=== PATIENT | male | born 1950 | race Caucasian/White ===

== ENCOUNTER 2018-06-18 18:46 | Emergency (ER) | payer MEDICARE, OTHER ==
[2018-06-18 19:31] VITALS: RESP 18
[2018-06-18 20:24] LABS: Basophils % (A) 0 %; Eosinophils % (A) 0 %; HCT 46.7 % (39.0-53.0); Lymphocytes # (A) 1.3 k/uL (1.0-4.8); Lymphocytes % (A) 12 %; MCH 30.4 pg (25.0-35.0); MCHC 32.2 g/dL (31.0-37.0); MCV 94.4 fL (80.0-100.0); Mean Platelet Volume 6.7; Monocytes # (A) 0.3 k/uL (0-1.0); Monocytes % (A) 3 %; Neutrophils # (A) 9.6 k/uL (1.3-7.7); Neutrophils % (A) 84 %; Platelet Count 239 k/uL (150-450); RBC 4.95 m/uL (4.30-5.90); WBC 11.4 k/uL (3.8-10.6)
[2018-06-18 20:32] LABS: Albumin 4.6 g/dL (3.5-5.0); Calcium 9.6 mg/dL (8.4-10.2); Potassium 4.6 mmol/L (3.5-5.1); Total Bilirubin 0.7 mg/dL (0.2-1.3); Total Protein 7.5 g/dL (6.3-8.2)
--- NOTE | 2018-06-18 21:50 | XR ---
EXAMINATION TYPE: XR KUB DATE OF EXAM: 06/18/2018 COMPARISON: NONE HISTORY: Flank pain TECHNIQUE: 2 views upright FINDINGS: There is no sign of intestinal obstruction or pneumoperitoneum. Fecal pattern is normal. Th ere is a 4 mm calcification over the periphery of the left kidney. There is possible 3 mm calculus in the lower pole right kidney. There is no evidence of a mass. Lung bases are clear. IMPRESSION: Nonacute abdomen. Possible renal calculi.
[2018-06-18] MEDS ORDERED: HYDROmorphone 1 MG/ML 1 ML SYRINGE IVP STA (22:44)
[2018-06-18] MEDS ORDERED: ONDANSETRON 4 MG/2 ML VIAL IVP STA (22:44)
--- NOTE | 2018-06-18 22:46 | ED ---
General Adult HPI - General Chief complaint: Abdominal Pain Stated complaint: abd pain Time Seen by Provider: 06/18/18 22:31 Source: patient, family, RN notes reviewed Mode of arrival: ambulatory Limitations: no limitations - History of Present Illness Initial comments: Patient is a pleasant 67-year-old male presenting to the emergency Department with abdominal discomfort. Onset of symptoms was around 5 hours ago. Discomfort was somewhat abrupt. Patient has had continued discomfort since that time. Patient questioned if he could've been constipated and tried an enema without improvement of symptoms. No diarrhea. No dysuria or hematuria. Patient has had nausea and did vomit once. Patient does have a history of kidney stone one time previously however is unclear symptoms are similar. Discomfort is mostly in the lower mid abdomen. No fevers. - Related Data Home Medications Medication Instructions Recorded Confirmed Atorvastatin [Lipitor] 20 mg PO DAILY@199906/18/18 06/18/18 Previous Rx's Medication Instructions Recorded Ketorolac [Toradol] 10 mg PO Q6HR PRN #15 tab 06/19/18 Metoclopramide HCl [Reglan] 10 mg PO Q6HR PRN #15 tablet 06/19/18 Tamsulosin [Flomax] 0.4 mg PO DAILY #14 cap 06/19/18 Allergies Allergy/AdvReac Type Severity Reaction Status Date / Time No Known Allergies Allergy Verified 06/18/18 21:47 Review of Systems ROS Statement: Those systems with pertinent positive or pertinent negative responses have been documented in the HPI. ROS Other: All systems not noted in ROS Statement are negative. Constitutional: Denies: fever Eyes: Denies: eye pain ENT: Denies: ear pain Respiratory: Denies: cough Cardiovascular: Denies: chest pain Endocrine: Denies: fatigue Gastrointestinal: Reports: abdominal pain, nausea, vomiting Genitourinary: Denies: dysuria Musculoskeletal: Denies: arthralgia Skin: Denies: rash Neurological: Denies: weakness Past Medical History Past Medical History: Hyperlipidemia Additional Past Medical History / Comment(s): kidney stones History of Any Multi-Drug Resistant Organisms: None Reported Past Surgical History: Coronary Bypass/CABG Past Psychological History: No Psychological Hx Reported Smoking Status: Never smoker Past Alcohol Use History: Occasional Past Drug Use History: None Reported General Exam Limitations: no limitations General appearance: alert, in no apparent distress Head exam: Present: atraumatic Eye exam: Present: normal appearance, PERRL ENT exam: Present: normal oropharynx Neck exam: Present: normal inspection Respiratory exam: Present: normal lung sounds bilaterally Cardiovascular Exam: Present: regular rate, normal rhythm Expanded Peripheral pulses: 2+: Dorsalis Pedis (R), Dorsalis Pedis (L) GI/Abdominal exam: Present: soft, tenderness (Moderate tenderness of the lower abdomen), guarding, normal bowel sounds. Absent: distended, rebound, rigid, pulsatile mass Extremities exam: Present: normal inspection Back exam: Present: normal inspection. Absent: CVA tenderness (R), CVA tenderness (L) Neurological exam: Present: alert Psychiatric exam: Present: normal affect, normal mood Skin exam: Present: normal color Course Vital Signs 06/18/18 06/18/18 06/18/18 19:29 23:00 23:58 Temperature 97.2 F L 99.1 F Pulse Rate 60 63 87 Respiratory 18 18 18 Rate Blood Pressure 147/69 142/69 149/70 O2 Sat by Pulse 99 98 95 Oximetry Medical Decision Making - Medical Decision Making Patient reevaluated. Patient is feeling better however still having some discomfort. Patient is receptive to Toradol. Patient and are updated on results. - Lab Data Result diagrams: 06/18/18 20:09 06/18/18 20:09 Lab Results 06/18/18 06/18/18 Range/Units 20:09 20:09 WBC 11.4 H (3.8-10.6) k/uL RBC 4.95 (4.30-5.90) m/uL Hgb 15.0 (13.0-17.5) gm/dL Hct 46.7 (39.0-53.0) % MCV 94.4 (80.0-100.0) fL MCH 30.4 (25.0-35.0) pg MCHC 32.2 (31.0-37.0) g/dL RDW 13.0 (11.5-15.5) % Plt Count 239 (150-450) k/uL Neutrophils % 84 % Lymphocytes % 12 % Monocytes % 3 % Eosinophils % 0 % Basophils % 0 % Neutrophils # 9.6 H (1.3-7.7) k/uL Lymphocytes # 1.3 (1.0-4.8) k/uL Monocytes # 0.3 (0-1.0) k/uL Eosinophils # 0.0 (0-0.7) k/uL Basophils # 0.0 (0-0.2) k/uL Sodium 141 (137-145) mmol/L Potassium 4.6 (3.5-5.1) mmol/L Chloride 106 (98-107) mmol/L Carbon Dioxide 23 (22-30) mmol/L Anion Gap 12 mmol/L BUN 19 (9-20) mg/dL Creatinine 1.20 (0.66-1.25) mg/dL Est GFR (CKD-EPI)AfAm 72 (>60 ml/min/1.73 sqM) Est GFR (CKD-EPI)NonAf 62 (>60 ml/min/1.73 sqM) Glucose 119 H (74-99) mg/dL Calcium 9.6 (8.4-10.2) mg/dL Total Bilirubin 0.7 (0.2-1.3) mg/dL AST 29 (17-59) U/L ALT 41 (21-72) U/L Alkaline Phosphatase 63 (38-126) U/L Total Protein 7.5 (6.3-8.2) g/dL Albumin 4.6 (3.5-5.0) g/dL Amylase 72 (30-110) U/L Lipase 105 (23-300) U/L - Radiology Data Radiology results: report reviewed (Computed tomography scan abdomen and pelvis does have a small obstructing calculi distal left ureter, 3 mm.) Disposition Clinical Impression: Ureterolithiasis Disposition: HOME SELF-CARE Condition: Stable Instructions: Kidney Stones (ED) Additional Instructions: Please follow-up with primary care physician in the next day or 2 for recheck. Also follow-up with urology. Return for fevers, increased pain, vomiting, worsening symptoms or other concerns. Prescriptions: Ketorolac [Toradol] 10 mg PO Q6HR PRN #15 tab PRN Reason: Pain Metoclopramide HCl [Reglan] 10 mg PO Q6HR PRN #15 tablet PRN Reason: Nausea Tamsulosin [Flomax] 0.4 mg PO DAILY #14 cap Is patient prescribed a controlled substance at d/c from ED?: No Referrals: Toy Freeman DO [Primary Care Provider] - 1-2 days Time of Disposition: 00:41
--- NOTE | 2018-06-18 23:44 | CT ---
EXAMINATION TYPE: CT abdomen pelvis w con DATE OF EXAM: 06/18/2018 COMPARISON: None HISTORY: No prior, left flank pain with nausea and vomiting CT DLP: 574.70 mGycm Automated exposure control for dose reduction was used. TECHNIQUE: Helical acquisition of images was performed from the lung bases through the pelvis. CONTRAST: Performed without Oral Contrast and with IV Contrast, patient injected with 100 mL of Isovue 300. FINDINGS: There is some linear density at the posterior lung bases. There is no pericardial effusion. There is no pleural effusion. There is small hiatal hernia. Liver spleen pancreas gallbladder appear normal. Bile ducts are not dil ated. There is no adrenal mass. Kidneys show satisfactory contrast opacification. There is poor excretion o f contrast on the left side on the delayed images. There is a 4 mm calculus in the lateral left kidne y. There is no retroperitoneal adenopathy. Abdominal aorta is atheromatous. There is some stranding a round the left ureter. There is a 3 mm calculus in the distal left ureter. There is minimal left-side d hydronephrosis and hydroureter. Bladder distends smoothly. There is no pelvic mass. Appendix is not seen. There is no sign of appendicitis. I see no intestinal wall thickening. There are no dilated lo ops. There is no retroperitoneal adenopathy. There is L5 spondylolysis with minimal first-degree L5-S 1 spondylolisthesis. IMPRESSION: SMALL OBSTRUCTING CALCULUS IN THE DISTAL LEFT URETER. LEFT RENAL CALCULUS. FIRST-DEGREE L5-S1 SPONDYLOLISTHESIS.
[2018-06-19] MEDS ORDERED: KETOROLAC 30 MG/ML 1 ML VIAL IVP STA (00:38)
[2018-06-19 00:59] VITALS: BP 143/68; PULSE 73; TEMP 98.8
== END 2018-06-19 01:03 | disposition home or self-care (01) ==
LOC: EC 18:46
DX: N20.1 Calculus of ureter (principal); K59.00 Constipation, unspecified; E78.5 Hyperlipidemia, unspecified; Z87.442 Personal history of urinary calculi; Z95.1 Presence of aortocoronary bypass graft; Z79.899 Other long term (current) drug therapy
CPT/HCPCS: 99284; 96374; 96375 ×2; 36415; 80053; 82150; 83690; 85025; 74018; 74177; J2405; J1885; J1170; Q9967

== ENCOUNTER → 2022-10-20 | Outpatient (CLI) | payer MEDICARE, OTHER ==
[2022-10-20 18:47] LABS: HCT 43.8 % (39.6-50.0); HGB 14.1 g/dL (13.0-17.0); MCH 30.9 pg (27.0-32.0); MCHC 32.2 g/dL (32.0-37.0); MCV 96.1 fL (80.0-97.0); RBC 4.56 X 10*6/uL (4.40-5.60); RDW 12.5 % (11.5-14.5); WBC 4.92 X 10*3/uL (4.50-10.00)
[2022-10-20 18:48] LABS: Basophils # (A) 0.03 X 10*3/uL (0.00-0.10); Basophils % (A) 0.6 %; Eosinophils # (A) 0.16 X 10*3/uL (0.04-0.35); Eosinophils % (A) 3.3 %; Immature Grans, Automated 0.2 %; Lymphocytes # (A) 1.94 X 10*3/uL (0.90-5.00); Lymphocytes % (A) 39.4 %; Mean Platelet Volume 9.7 fL (9.5-12.2); Monocytes # (A) 0.49 X 10*3/uL (0.20-1.00); NRBC Per 100 WBC 0 /100 WBCS (0.0-0.0); Neutrophils # (A) 2.29 X 10*3/uL (1.80-7.70); Neutrophils % (A) 46.5 %; Platelet Count 237 X 10*3/uL (140-440)
[2022-10-20 19:10] LABS: ALT 33 U/L (10-49); AST 25 U/L (14-35); African American GFR (CKD) 78.7 (60.0-200.0); Albumin 4.3 g/dL (3.8-4.9); Albumin/Globulin Ratio 2.07 (1.60-3.17); Alkaline Phosphatase 66 U/L (41-126); BUN/Creat Ratio 12.29 Ratio (12.00-20.00); Bilirubin, Conjugated <0.20 mg/dL (0.20-0.40); Blood Urea Nitrogen 13.4 mg/dL (9.0-27.0); Calcium 9.2 mg/dL (8.7-10.3); Carbon Dioxide 27.4 mmol/L (20.0-27.5); Chloride 107 mmol/L (96-109); Chol/HDL Ratio 2.71 Ratio; Creatine Kinase 83 U/L (35-257); Globulin 2.1 g/dL (1.6-3.3); Glucose 97 mg/dL (70-110); LDL Cholesterol,Calculated 72.4 mg/dL (0.0-131.0); Non-African American GFR(CKD) 67.9 (60.0-200.0); Potassium 4.7 mmol/L (3.5-5.5); Sodium 143 mmol/L (135-145); Total Protein 6.4 g/dL (6.2-8.2); VLDL Calculation 13.44 mg/dL (5.00-40.00)
== END | disposition home or self-care (01) ==
LOC: LABWHC1 12:05
PROVIDERS: ATTEND Internal Medicine Interventional Cardiology
DX: I25.810 Atherosclerosis of coronary artery bypass graft(s) without angina pectoris (principal)
CPT/HCPCS: 36415; 80048; 80061; 80076; 82550; 83036; 85025

== ENCOUNTER → 2023-05-09 | Outpatient (CLI) | payer MEDICARE, OTHER ==
[2023-05-09 16:34] LABS: Appearance,Urine Clear (Clear); Bilirubin,Urine Negative (Negative); Blood,Urine Negative (Negative); Color,Urine Dark Yellow (Yellow); Ketones,Urine Trace (Negative); Nitrite,Urine Negative (Negative); PH, Urine 5.5; Specific Gravity,Urine 1.025 (1.001-1.030)
[2023-05-09 16:35] LABS: HCT 44.7 % (39.6-50.0); MCH 30.8 pg (27.0-32.0); MCHC 31.3 d/dL (32.0-37.0); MCV 98.2 FL (80.0-97.0); Mean Platelet Volume 10.1 FL (9.5-12.2); NRBC Per 100 WBC 0 X 10*3/uL (0.00-0.01); Platelet Count 264 X 10*3/uL (140-440); RBC 4.55 X 10*6/uL (4.40-5.60); RDW 12.8 % (11.5-14.5); WBC 5.21 X 10*3/uL (4.50-10.00)
[2023-05-09 16:40] LABS: Bacteria,Urine None Seen (None Seen)
[2023-05-09 18:44] LABS: ALT 19 U/L (10-49); AST 20 U/L (14-35); Albumin 4.3 d/dL (3.8-4.9); Albumin/Globulin Ratio 1.95 Ratio (1.60-3.17); Alkaline Phosphatase 62 U/L (41-126); BUN/Creat Ratio 13.09 Ratio (12.00-20.00); Blood Urea Nitrogen 14.4 mg/dL (9.0-27.0); Calcium 9.6 mg/dL (8.7-10.3); Carbon Dioxide 25.8 mmol/L (21.6-31.8); Chloride 106 mmol/L (96-109); Chol/HDL Ratio 2.87 Ratio; Globulin 2.2 d/dL (1.6-3.3); Glucose 102 mg/dL (70-110); LDL Cholesterol,Calculated 75.2 mg/dL (0.0-131.0); Sodium 141 mmol/L (135-145); T4, Free (Free Thyroxine) 1.14 ng/dL (0.80-1.80); Total Bilirubin 0.6 mg/dL (0.3-1.2); Total Protein 6.5 d/dL (6.2-8.2); VLDL Calculation 17.92 mg/dL (5.00-40.00)
== END | disposition home or self-care (01) ==
LOC: LABWHC1 10:21
PROVIDERS: ATTEND Family Medicine
DX: E55.9 Vitamin D deficiency, unspecified (principal); R68.89 Other general symptoms and signs; R79.9 Abnormal finding of blood chemistry, unspecified; R53.83 Other fatigue; R39.9 Unspecified symptoms and signs involving the genitourinary system
CPT/HCPCS: 36415; 80053; 80061; 81001; 82306; 83036; 84153; 84403; 84439; 84443; 85027

== ENCOUNTER → 2024-05-14 | Outpatient (CLI) | payer MEDICARE, OTHER ==
[2024-05-14 16:18] LABS: ALT 21 U/L (10-49); AST 24 U/L (14-35); Albumin 4.4 g/dL (3.8-4.9); Albumin/Globulin Ratio 1.91 Ratio (1.60-3.17); Alkaline Phosphatase 68 U/L (41-126); Bilirubin, Conjugated 0.24 mg/dL (0.20-0.40); Bilirubin,Unconjugated 0.56 mg/dL (0.20-1.00); Chol/HDL Ratio 2.64 Ratio; Globulin 2.3 g/dL (1.6-3.3); LDL Cholesterol,Calculated 68.4 mg/dL (0.0-131.0); Total Bilirubin 0.8 mg/dL (0.3-1.2); Total Protein 6.7 g/dL (6.2-8.2)
== END | disposition home or self-care (01) ==
LOC: LABWHC1 10:49
PROVIDERS: ATTEND Internal Medicine Interventional Cardiology
DX: E78.49 Other hyperlipidemia (principal)
CPT/HCPCS: 36415; 80061; 80076